=== PATIENT | female | born 1930 | race Caucasian/White ===

== ENCOUNTER 2018-09-12 13:35 | Inpatient (IN) | payer MEDICARE ==
--- NOTE | 2018-09-12 14:02 | CT ---
CT BRAIN WITHOUT CONTRAST: Date: 09/12/18 HISTORY: Left-sided facial droop. FINDINGS: Correlation made with MRI of 04/28/15. Changes of cortical atrophy, chronic small vessel ischemic disease, and old infarctions are again see n. No evidence of acute infarct, hemorrhage, midline shift, or abnormal extra-axial fluid collections are noted. The ventricular size is appropriate and the basilar cisterns are patent. The bony calvari um is intact. The visualized paranasal sinuses and mastoid air cells are well aerated. There is an os teoma in the left frontal sinus. IMPRESSION: No CT evidence of acute intracranial process. POS: OFF
[2018-09-12 14:21] LABS: #Basophils 0.1 thou/uL (0.0-0.2); #Eosinphils 0.1 thou/uL (0.0-0.7); #Lymphocytes 3.5 thou/uL (1.20-3.40); %Basophils 0.5 % (0.0-1.0); %Eosinophils 0.8 % (0.0-10.0); %Lymphocytes 27.4 % (21.0-51.0); %Monocytes 8.1 % (0.0-10.0); %Neutrophils 63.3 % (42.0-75.0); Hemoglobin 13.4 g/dL (12.0-16.0); Mean Corpuscular HGB CONC 30.7 g/dL (32.0-36.0); Mean Corpuscular Hemoglobin 31.6 pg (27.0-31.0); Mean Platelet Volume 8.6 fL (7.4-10.4); Platelet Count 358 thou/uL (130-400); RBC Distribution Width 13.8 % (11.5-14.5); Red Blood Cell (RBC) Count 4.24 mill/uL (4.20-5.40); White Blood Cell (WBC) Count 12.6 thou/uL (4.8-10.8)
[2018-09-12 14:25] LABS: PTT 32.3 SEC (22.9-36.1); Prothrombin Time 16.5 SEC (12.0-14.7)
[2018-09-12 14:26] LABS: INR-International Normal Ratio 1.3
[2018-09-12 14:41] LABS: ALT (SGPT) 12 U/L (8-55); AST (SGOT) 23 U/L (5-34); Albumin 3.9 g/dL (3.4-4.8); Alkaline Phosphatase 154 U/L (40-150); Anion Gap 15 mmol/L (10-20); BUN (Urea Nitrogen) 14 mg/dL (9.8-20.1); Bilirubin, Total 0.6 mg/dL (0.2-1.2); Calc. Creatinine Clearance 0 mL/min (70-130); Calcium 9.3 mg/dL (7.8-10.44); Carbon Dioxide 24 mmol/L (23-31); Chloride 109 mmol/L (98-107); Estimated GFR-MDRD 67; Glucose 95 mg/dL (83-110); Potassium 4.3 mmol/L (3.5-5.1); Protein, Total 6.9 g/dL (6.0-8.3); Sodium 144 mmol/L (136-145)
[2018-09-12 16:28] LABS: Bilirubin Negative (Negative); Blood, Urine Negative (Negative); Clarity CLEAR (Clear); Glucose, Urine (Dipstick) Negative (Negative); Leukocyte Small (Negative); Nitrite Negative (Negative); Protein, Urine (Dipstick) Negative (Neg-Trace); Specific Gravity, Urine 1.006 (1.002-1.036); Urobilinogen 0.2 mg/dL (0.2-1.0)
[2018-09-12 16:30] LABS: Bacteria/HPF None Seen HPF (None Seen); Hyaline Casts/LPF 0-3 HYALINE CAST LPF (0-3 Hyaline); Pathc Cast-AUWi Flag 0.43 (0-2.49); Squamous Epithelial 0-3 HPF (0-3)
[2018-09-12 18:12] LABS: Troponin I 0.036 ng/mL (< 0.028)
[2018-09-12] MEDS ORDERED: Ondansetron ODT 4 MG TAB PO PRN (18:24)
[2018-09-12] MEDS ORDERED: Acetaminophen 325 MG TAB PO PRN (18:24)
[2018-09-12] MEDS ORDERED: Ondansetron PF 4 MG/2 ML Vial IVP PRN (18:24)
[2018-09-12 20:40] LABS: Troponin I 0.031 ng/mL (< 0.028)
[2018-09-12] MEDS ORDERED: Atorvastatin Calcium 20 MG TAB PO SCH (21:00)
[2018-09-12] MEDS: Apixaban 2.5 MG TAB PO SCH (21:14)
[2018-09-12] MEDS: Famotidine 20 MG TAB PO SCH (21:14)
[2018-09-12 23:08] VITALS: BMI 22.5
[2018-09-13 04:50] LABS: #Basophils 0.1 thou/uL (0.0-0.2); #Eosinphils 0.1 thou/uL (0.0-0.7); #Lymphocytes 2.4 thou/uL (1.20-3.40); #Monocytes 0.8 thou/uL (0.11-0.59); #Neutrophils 4.3 thou/uL (1.40-6.50); %Basophils 0.8 % (0.0-1.0); %Eosinophils 1.6 % (0.0-10.0); %Lymphocytes 30.9 % (21.0-51.0); %Monocytes 10.3 % (0.0-10.0); %Neutrophils 56.3 % (42.0-75.0); Hemoglobin 11.8 g/dL (12.0-16.0); Mean Corpuscular HGB CONC 32.8 g/dL (32.0-36.0); Mean Corpuscular Hemoglobin 33.4 pg (27.0-31.0); Mean Platelet Volume 8.8 fL (7.4-10.4); Platelet Count 299 thou/uL (130-400); RBC Distribution Width 13.7 % (11.5-14.5); Red Blood Cell (RBC) Count 3.52 mill/uL (4.20-5.40); White Blood Cell (WBC) Count 7.6 thou/uL (4.8-10.8)
[2018-09-13 05:12] LABS: Anion Gap 12 mmol/L (10-20); BUN (Urea Nitrogen) 13 mg/dL (9.8-20.1); Calc. Creatinine Clearance 51 mL/min (70-130); Carbon Dioxide 25 mmol/L (23-31); Cardiac Risk 3.3 (Less than 4.5); Chloride 109 mmol/L (98-107); Cholesterol 140 mg/dl (< 200 Desired); Estimated GFR-MDRD 78; Glucose 66 mg/dL (83-110); HDL Cholesterol 43 mg/dL (>60 Neg Risk); LDL Cholesterol, Calculated 85 mg/dL; Potassium 3.9 mmol/L (3.5-5.1); Sodium 142 mmol/L (136-145); Triglycerides 59 mg/dL (Less than 150)
--- NOTE | 2018-09-13 05:15 | HP ---
PRIMARY CARE PHYSICIAN: Dr. Garcia. CHIEF COMPLAINT: Left facial droop and dysarthria. HISTORY OF PRESENT ILLNESS: Ms. Mendes is a pleasant 87-year-old female with a past medical history of CHF, hypertension, gout, osteoarthritis, history of atrial fibrillation, currently on Eliquis, she had presented to [facility] with left facial droop and slurred speech. Earlier today, she reports symptoms started earlier this morning at nursing and rehab facility while working with physical therapy, and her daughter transported to [place] [facility] where she underwent CT of her head which showed no CT evidence of acute intracranial process. She was then transferred back [facility] secondary to her symptoms resolved, however, her symptoms did in fact returned. Therefore, they would seek further evaluation and management of symptoms at [facility]. She reported to the ER, had a mild left-sided facial droop. She reports she had a history of an embolic stroke back in 2014, she was also diagnosed with atrial fibrillation at that time as well. She was later stabilized and then started on Coumadin and discharged with further followup with Dr. Herrera as outpatient. She stated that she was later discharged from Dr. Herrera's care and back to Dr. Garcia, her PCP to further manage symptoms. She had remained stable and rate controlled on atenolol. She also remained on Eliquis, which was updated from her Coumadin from her last hospital admission. She [facility] over [facility] since last Sunday. She states she was seen at [facility] last Sunday with nausea, vomiting, and diarrhea. She spent about 3 days at [facility] due to generalized weakness. She was then discharged to [facility] where she has been out ever since. She has no further symptoms of nausea, vomiting, or diarrhea. She denies fever or chills. She denies chest pain or shortness of breath. Her initial workup in the ER included a troponin which was found to be negative, 0.023. However, she did show an elevated white count of 12.6. Her urinalysis did show small leukocyte esterase and 4 to 6 wbc's, therefore, a urine culture was ordered. She denied any urinary symptoms at this time, therefore, IV antibiotics were not started. She was transferred up to the stroke floor for further observation and evaluation of symptoms and a consult was placed for Neurology Services. REVIEW OF SYSTEMS: Positive for left facial droop and mild slurred speech. All other review of systems are negative unless mentioned in HPI. PAST MEDICAL HISTORY: Significant for CHF, hypertension, history of AV block, history of mitral valve insufficiency, history of atrial fibrillation, currently rate controlled, gout, osteoarthritis, and history of embolic stroke back in 2015. PSYCHIATRIC HISTORY: Denies any psychiatric history. SOCIAL HISTORY: Denies any alcohol use, tobacco use, or illicit drug use. ALLERGIES: NO KNOWN DRUG ALLERGIES. CURRENT HOME MEDICATIONS: 1. Allopurinol 300 mg once daily. 2. Aspirin 81 mg daily. 3. Eliquis 2.5 mg twice daily. 4. Atenolol 100 mg p.o. q.a.m. 5. Benicar 20 mg once daily. 6. B complex vitamin 1 tablet oral daily. 7. CoQ10 one tablet oral 3 times a day. 8. Meclizine 25 mg oral 4 times a day as needed for dizziness. PHYSICAL EXAMINATION: VITAL SIGNS: Blood pressure 147/97, pulse 70, respirations 12, temperature 97.8 degrees Fahrenheit, and O2 saturation 98% on room air. GENERAL: The patient is awake, alert, and oriented x3. No acute distress noted. HEENT: Atraumatic. The patient is with mild left-sided facial droop. Pupils, round and reactive to light. Extraocular muscles intact. Moist mucous membranes noted. Oropharynx is clear without erythema or exudates. NECK: Soft, supple, and nontender. Trachea midline. CARDIOVASCULAR: Positive S1 and S2. Regular rate and rhythm. No murmur noted. RESPIRATORY: Clear to auscultation bilaterally. No wheezes, no rhonchi. ABDOMEN: Soft, nontender. Bowel sounds present. No rebound. No guarding. MUSCULOSKELETAL: Strength 5+ bilaterally, upper and lower extremities, moves all extremities equal. Pedal and radial pulses palpable and intact. No edema noted. BACK: No CVA tenderness. Good range of motion. NEUROLOGIC: Cranial nerves 2 through 12 intact. No focal deficits noted. Left-sided facial droop. SKIN: Warm, dry, and intact. No lesions. No rashes. PSYCHIATRIC: Good mood and affect. LABORATORY DATA: WBC 12.6, RBC 4.24, hemoglobin 13.4, and platelet 358. PT 16.5, INR 1.3, and PTT 32.3. Sodium 144, potassium 4.3, creatinine 0.81, BUN 14, estimated GFR 67, glucose 95, AST 23, ALT 12, and alkaline phosphatase 154. Troponin 0.023. Urinalysis, small leukocyte esterase, 4 to 6 plus wbc, otherwise unremarkable. DIAGNOSTIC IMAGING: CT of brain without contrast showed no CT evidence of acute intracranial process, however, did show changes of cortical atrophy, chronic small-vessel ischemic disease, and old infarctions are seen. ASSESSMENT AND PLAN: 1. Possible transient ischemic attack/cerebrovascular accident. CTA revealed no CT evidence of acute intracranial process, however, did show old infarction, also showed chronic small-vessel ischemic disease. We will obtain an echocardiogram and MRI of head. We will also place consult for Dr. Nicholson with Neurology for further evaluation and management. The patient will remain on home dose of aspirin 81 mg daily along with Eliquis 2.5 mg twice daily. The patient was not on statin therapy, however, will be restarted. Lipid panel will be checked. Also, check TSH. 2. Hypertension. Continue on the patient's home regimen. Also add IV hydralazine as needed for elevated blood pressure. 3. History of atrial fibrillation. The patient is currently stable at this time. We will continue the patient's home regimen including atenolol, aspirin, and Eliquis. 4. History of dizziness. The patient is currently asymptomatic, however, we will restart the patient's home regimen with meclizine as needed. 5. Deep venous thrombosis prophylaxis. We will continue the patient's home regimen including Eliquis 2.5 mg twice daily. 6. Gastrointestinal prophylaxis with Pepcid twice daily and Zofran as needed for nausea. 7. Code status, full code. 8. Disposition, pending patient progress and clinical findings. Job ID: [id number]
[2018-09-13] MEDS: Apixaban 2.5 MG TAB PO SCH ×2 (09:51→21:10)
[2018-09-13] MEDS: Atenolol 25 MG TAB PO SCH ×2 (09:52→09:58)
[2018-09-13] MEDS: Famotidine 20 MG TAB PO SCH ×2 (09:52→21:10)
--- NOTE | 2018-09-13 10:40 | MRI ---
BRAIN MRI WITHOUT IV CONTRAST: History: 87-year-old female with history of TIA/CVA with left sided facial droop. Comparison: 04-28-15 FINDINGS: There is some atrophy and chronic white matter ischemic changes with some old infarct changes bilater ally, particularly in the subcortical regions of the posterior frontal and parietal lobes and left oc cipital lobe and right cerebellar hemisphere. There is some abnormal increased signal on diffusion we ighted images and low signal on ADC map images in the right cerebellar hemisphere, evidence for some acute infarct changes. In addition, there is some very subtle diffusion hyperintensity and ADC map hy pointensity in the right Sylvian region, evidence for a small subcortical acute infarct. No evidence for significant mass effect or midline shift. No intra or extraaxial hemorrhage. There appears to be a small left parasagittal T1 isodense, T2 hypodense nodular focus which is dural based and probably r epresents a very small meningioma with little change from the prior study. IMPRESSION: Some scattered areas of acute infarct involving the right cerebellar hemisphere and some very small f oci in the right Sylvian subcortical region, evidence for small acute infarcts. Bilateral atrophy and chronic white matter ischemic changes and old patchy bilateral infarcts. No mass effect or acute hem orrhage. 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 POS: [facility]
[2018-09-13] MEDS ORDERED: Allopurinol 300 MG TAB PO SCH (21:00)
[2018-09-13] MEDS ORDERED: Atenolol 25 MG TAB PO SCH (21:00)
[2018-09-13] MEDS ORDERED: Pravastatin Sodium 20 MG TAB PO SCH (21:00)
[2018-09-13] MEDS: Atorvastatin Calcium 40 MG TAB PO SCH ×2 (21:12→21:13)
--- NOTE | 2018-09-13 22:42 | CON ---
DATE OF CONSULTATION: 09-13-18 CHIEF COMPLAINT: Acute dysarthria. HISTORY OF PRESENT ILLNESS: The patient reports that she has had history of gastrointestinal illness throughout last week, the whole of Sunday and was admitted to the hospital. She was at nursing and rehab facility in [place], [place], and she was working with the physical therapist, and she developed slurred speech, and her daughter remarked that her right face was droopy and they brought her to the hospital, and she was then transferred to the rehab after symptoms. They thought the symptoms have resolved, but then she came right back to the hospital at [facility] because earlier she did not have resolution of her symptoms. She reported she had facial droop mostly on the left side per chart, but the patient said it was the right facial droop and slurred speech. The patient reports she had a stroke in the past and has been having atrial fibrillation, was on Coumadin, then has been under Dr. Herrera's care, and she was switched to Eliquis recently from her previous hospital admission, and she has also been on low-dose aspirin. She has known atrial fibrillation, congestive heart failure, hypertension, and multiple medical issues. She does not have any history of weakness. PAST MEDICAL HISTORY: Previous medical history, the patient as stated above, hypertension, congestive heart failure, AV block, mitral valve insufficiency, atrial fibrillation, prior history of stroke, gout, osteoarthritis, and embolic stroke in 2015. SOCIAL HISTORY: She is currently at the rehab center. Her has , therefore, she is mostly at home by herself throughout the daytime, but her son stays with her at night. ALLERGIES: NO KNOWN DRUG ALLERGIES. FAMILY HISTORY: Her father of a heat stroke at age of 58. Mother at 85 from cardiac issues. She has one brother and sister, do not have a history of stroke. PAST SURGICAL HISTORY: The patient had a knee implant on the right side. Total hip arthroplasty on the left side. REVIEW OF SYSTEMS: PULMONARY: Negative for any shortness of breath. CARDIOVASCULAR: Positive for atrial fibrillation and heart problems. HEMATOLOGIC: She is on Eliquis at this time, was on Coumadin in the past. DERMATOLOGIC: Negative. GI: Positive for recent stomach problems including vomiting and GI illness. ENDOCRINE: Negative for any thyroid dysfunction or diabetes. OPHTHALMOLOGIC: Normal. PHYSICAL EXAMINATION: VITAL SIGNS: Blood pressure 155/61, pulse 77, and temperature 97.7. GENERAL APPEARANCE: Very thin built lady, who appears frail. CHEST: Clear. Vesicular breathing. CARDIOVASCULAR: S1 and S2 heard. No murmurs. ABDOMEN: Soft. NEUROLOGIC: Higher intellectual functions. Oriented to time, person, and place. Appropriate conversation. Cranial nerves II through XII, normal. Extraocular movements, which she reports a double vision while performing extraocular movement examination. Pupils are reactive to light bilaterally. Normal facial sensation. Mild left facial asymmetry. Tongue midline. No atrophy noted. Motor, normal elevation of palate. Motor, bulk normal; tone, normal. Strength 5/5 in upper and lower extremities, iliopsoas, hamstring, and quadriceps, ankle dorsiflexion, plantar flexion, deltoid, biceps, triceps, hip extension and flexion, finger extension and flexion bilaterally. Deep tendon reflexes 1+ throughout except for the right knee jerk which was absent. Cerebellar, mild cerebellar ataxia on the left side only. Sensory, normal to touch and by proprioception. LABORATORY DATA: Her laboratory results are as follows; white count is 7.6, hemoglobin 11.8, hematocrit 35.8, and platelets are 299. Sodium 142, potassium 3.9, chloride 109, bicarb 25, BUN 13, creatinine 0.71, glucose 66, and calcium 9.0. Lipid profile is within normal limits. DIAGNOSTIC STUDIES: Her MRI shows some scattered areas of acute infarct in the right cerebellar hemisphere and some very small foci in the right sylvian subcortical region, and there are evidence for small acute infarcts bilateral, atrophy, chronic white matter ischemic changes, old patchy bilateral infarct, and small stable 0.6 cm left parasagittal meningioma. She has pending echocardiograms at this time. IMPRESSION: The patient with acute ischemic event with history of cardiac issues and atrial fibrillation. She was on Coumadin and recently was changed to Eliquis and she is also on aspirin at home as a low dose. She now has acute infarcts in the right cerebellar and posterior circulation area as well as other area, and her examination shows mild cerebellar findings on the left side with mild facial droop, otherwise, the speech has returned back to normal baseline. She is at high risk for ischemic events to the [employer], particularly with her cardiac history. TREATMENT PLAN: Please complete her workup including echocardiogram. Please consult Cardiology to determine whether Xarelto is an option since she failed both Coumadin and Eliquis and we can combine that with high-dose aspirin to prevent future strokes. I will follow up the patient with you tomorrow. Job ID: [id number]
[2018-09-14] MEDS: Apixaban 2.5 MG TAB PO SCH (09:09)
[2018-09-14] MEDS: Famotidine 20 MG TAB PO SCH (09:10)
[2018-09-14 11:41] VITALS: TEMP 98.2
--- NOTE | 2018-09-14 12:08 | DIS ---
DATE OF ADMISSION: 09/12/2018 DATE OF DISCHARGE: 09/14/2018 PRIMARY CARE PHYSICIAN: Dr. João Garcia. DISCHARGE DIAGNOSES: 1. Acute lacunar infarcts of the right cerebrum. 2. Left-sided facial weakness and slurred speech. 3. History of cerebrovascular disease. 4. Central hypertension. CONSULTATION: Nephrology, Dr. Yue Bellamy. PROCEDURES: A 2D echocardiogram on 09/13/2018 that showed EF of 40% to 45%; and moderate MR, TR, and AI. HISTORY OF PRESENT ILLNESS: Ms. Mendes is an 87-year-old female with a recent [facility] She developed a left-sided facial droop and slurred speech, was sent back to our emergency department for evaluation. . We were subsequently called for admit. HOSPITAL COURSE: The patient was seen and examined by Mr. Chris Salgado and placed into observation status. MRI was done that showed acute infarcts and the patient was changed to inpatient status. She was seen by Neurology, who recommended a Cardiology consult. She had been on Eliquis for quite some time and baby aspirin and continued to have cerebrovascular events. I spoke with Dr. Strange today and he recommended increasing the aspirin to 325 by continuing her Eliquis for now. The patient was feeling much better and was stable for discharged back to rehab with outpatient followup. PHYSICAL EXAMINATION: The patient was seen and examined on the day of discharge. DISCHARGE PLAN: Disposition discussed with the patient [id number] at the bedside with her daughter. DISCHARGE MEDICATIONS: New medication; aspirin 325 mg a day. Aspirin 81 mg a day, discontinued. Home medication to continue otherwise. Please see medicine reconciliation sheet. DISCHARGE CONDITION: Stable. DISPOSITION: Discharged back to the nursing rehab, custodial facility for rehabilitation. DISCHARGE ACTIVITY: As tolerated. DISCHARGE DIET: Heart healthy diet recommended. FOLLOWUP APPOINTMENTS: 1. Primary care physician within a week. 2. Dr. Herrera with Cardiology in 1 to 2 weeks. Job ID: [id number]
[2018-09-14 13:04] VITALS: BP 149/75
--- NOTE | 2018-09-14 17:03 | PRG ---
DATE OF SERVICE: 09/14/2018 CHIEF COMPLAINT: Acute stroke. INTERVAL HISTORY: The patient has done well since yesterday and she has been seen by assessor as well. Plan is to increase her aspirin to 325 mg per day and send her back to the Rehab. The patient is improved and has been doing well, and I also discussed this with her primary admitting physician. LABORATORY DATA: No new lab reports are available at this time. PHYSICAL EXAMINATION: VITAL SIGNS: Blood pressure 161/67, pulse 75, temperature 98.4. GENERAL APPEARANCE: The patient is very interactive, quite pleasant and reports she is going back to the Rehab Center. Alert and awake. NEUROLOGIC: Cranial nerve examination; normal extraocular movements. No facial asymmetry, and she has tongue deviation to the right. Mild dysarthria. Motor examination; she has normal bulk and tone. Strength is normal in upper and lower extremities. Coordination; she has mild left-sided incoordination, improved since yesterday. IMPRESSION: The patient with acute cerebrovascular accident in the cerebellar area, mostly on the right side and she also has other previous ischemic events and her findings are coming from the right sylvian subcortical region with mild left-sided incoordination and dysarthria. She is stable otherwise and is ready for discharge to Rehab Center. I agree with aspirin 325 mg per day. Job ID: [id number]
--- NOTE | 2018-09-14 18:14 | EKG ---
Test Reason : EMERGENCY EXAM Blood Pressure : / mmHG Vent. Rate : 062 BPM Atrial Rate : 071 BPM P-R Int : 000 ms QRS Dur : 142 ms QT Int : 456 ms P-R-T Axes : 086 228 067 degrees QTc Int : 462 ms Atrial fibrillation Left bundle branch block Abnormal ECG When compared with ECG of 27-APR-2015 No changes Confirmed by LORENA CANALES DO ([id number]), science editor JENNIFER KINCAID ([id number]) on 09/14/2018 6:13:54 PM Referred By: PARKER Confirmed By:LORENA CANALES DO
== END 2018-09-14 15:18 | DRG 66 ==
LOC: ERS 13:35 → 2SE 16:51
PROVIDERS: ADMIT Family Medicine; ATTEND Family Medicine
DX: I63.81 Other cerebral infarction due to occlusion or stenosis of small artery (principal); R29.810 Facial weakness; R47.81 Slurred speech; I48.91 Unspecified atrial fibrillation; I11.0 Hypertensive heart disease with heart failure; M19.90 Unspecified osteoarthritis, unspecified site; I50.9 Heart failure, unspecified; M10.9 Gout, unspecified; R29.703 NIHSS score 3; I08.3 Combined rheumatic disorders of mitral, aortic and tricuspid valves; Z86.73 Personal history of transient ischemic attack (TIA), and cerebral infarction without residual deficits; Z79.82 Long term (current) use of aspirin; Z96.651 Presence of right artificial knee joint; Z96.642 Presence of left artificial hip joint; Z88.8 Allergy status to other drugs, medicaments and biological substances; Z79.01 Long term (current) use of anticoagulants
CPT/HCPCS: 36415; 36416; 70450; 70551; 80048; 80053; 80061; 81003; 81015; 84484; 85025; 85610; 85730; 87086; 93005; 93306; 94760; G8978-GP-CJ; G8979-GP-CI; G8987-GO-CJ; G8988-GO-CJ; G8989-GO-CJ